=== PATIENT | female | born 1975 | race Caucasian/White ===

== ENCOUNTER 2017-12-30 20:39 | Emergency (ER) | payer OTHER, MEDICAID ==
[2017-12-30 22:41] LABS: URINE BLOOD (Dip) POC Negative (NEGATIVE); URINE GLUCOSE (Dip) POC Negative (NEGATIVE); URINE KETONES (Dip) POC Negative (NEGATIVE); URINE LEUKOCYTE EST (Dip) POC Negative (NEGATIVE); URINE NITRITE (Dip) POC Negative (NEGATIVE); URINE TOTAL PROTEIN POC Negative (NEGATIVE)
[2017-12-30] MEDS: KETOROLAC 60 MG INJ IM (22:55)
[2017-12-30] MEDS: OXYCODONE/ACETAMINOPHEN (10/325) TAB PO (22:55)
== END 2017-12-30 23:18 | disposition home or self-care (01) ==
LOC: FTE 20:39
DX: N23 Unspecified renal colic (principal)
CPT/HCPCS: 81003; 81025; 96372; 99284-25